=== PATIENT | male | born 1960 | race African-American/Black ===

== ENCOUNTER → 2023-09-22 06:51 | Outpatient (REF) | payer MEDICARE, SELFPAY | LOC: RAD 06:51 | PROVIDERS: ATTENDING PHYSICIAN Family Medicine | DX: Z87.891 Personal history of nicotine dependence (principal) | CPT/HCPCS: 76770 ==

== ENCOUNTER 2023-11-11 11:34 | Emergency (ER) | payer MEDICARE, SELFPAY ==
[2023-11-11 11:37] VITALS: BP 157/98
[2023-11-11 12:55] LABS: % Basophils 0.2 % (0-2); % Eosinophils 1.4 % (0-6); % Immature Granulocytes 0.4 % (0-0.5); % Lymphocytes 18.8 % (20.5-51.1); % Monocytes 9.7 % (1.7-9.3); % Neutrophils 69.5 % (42.2-75.2); Absolute Eosinophils 0.1 10^3/uL (0-0.7); Absolute Lymphocytes 1.5 10^3/uL (1.2-3.4); Absolute Monocytes 0.8 10^3/uL (0.1-0.6); Absolute Neutrophils 5.6 10^3/uL (1.4-6.5); Hematocrit 43.4 % (39.0-52.0); Hemoglobin 14.3 g/dL (13.0-18.0); Mean Corp Hgb Conc. 32.9 g/dL (33.0-37.0); Mean Corpuscular Volume 84.9 fL (80.0-94.0); Mean Platelet Volume 10.4 fL (7.4-10.4); Nucleated Red Blood Cells % 0 % (-); Platelet Count 217 10^3/uL (130-400); Red Blood Cell Count 5.11 10^6/uL (4.70-6.10); Red Cell Dist. Width 13.5 % (11.5-14.5); White Blood Cell Count 8.1 10^3/uL (4.8-10.8)
[2023-11-11 12:57] LABS: Urine Albumin Negative (Neg - Trace); Urine Bilirubin Negative (Negative); Urine Character Clear (Clear); Urine Color Yellow; Urine Glucose Negative (Negative); Urine Ketone 1+ (Negative); Urine Leukocyte Negative (Negative); Urine Nitrite Negative (Negative); Urine Occult Blood Negative (Negative); Urine Urobilinogen 1+ (Neg - 1+)
[2023-11-11 13:07] LABS: ALT (SGPT) 35 U/L (0-50); AST (SGOT) 36 U/L (17-59); Albumin 4.7 g/dl (3.5-5.0); Alkaline Phosphatase 99 U/L (38-126); Blood Urea Nitrogen 14 mg/dl (9-20); Calcium 9.9 mg/dl (8.4-10.2); Carbon Dioxide 25 mmol/L (22-30); Chloride 100 mmol/L (98-107); Glucose 106 mg/dl (70-99); Sodium 141 mmol/L (135-145); Total Bilirubin 1.1 mg/dl (0.2-1.3); Total Protein 8.1 g/dl (6.3-8.2); eGFR > 60.00
[2023-11-11 13:19] LABS: Troponin I < 0.012 ng/ml
[2023-11-11 13:25] VITALS: BP 166/78
--- NOTE | 2023-11-11 13:34 | ED.GENMED ---
History of Present Illness
General
Chief Complaint: Dizziness
Source: patient
Exam Limitations: none
Time Seen by Provider: 11/11/23 13:08
Nursing documentation reviewed up to this point in time: agreed with
History of Present Illness
History of Present Illness:
63 y/o M
h/o sleep apnea, htn, hld, frequent PVCs
followed by Dr. Young from cardiology
Presents for increased feeling of palpitations over the last 3 days as well as mild fatigue. Patient says that he has noticed when he is resting that he can feel his palpitations more frequently than usual. He is not having any chest discomfort
with that or feeling of lightheadedness or near syncope. The triage note does say that he is feeling dizzy but he denied to me. He says that he is able to complete normal activities without difficulty, he is not having any trouble climbing his
steps. When he gets to the top he feels a little bit winded but he has no chest discomfort or feeling of passing out. Patient says that he has worn a Holter monitor which I can see in the charting system and he has had very many episodes of
bigeminy and frequent PVCs. He was put on metoprolol 25 mg succinate which she has been taking daily. He recently switched from taking it at night taking it during the day because he was feeling like maybe that was causing him to have trouble
sleeping over the last week. It is within this timeframe of changing the time of day that he is taking his medication that he started feeling more palpitations. He also has lack of appetite so he has not been eating and drinking as much. He
denies fever, cough, pleuritic chest pain, leg swelling, syncope, vomiting, abdominal pain. Patient did not call his marine machinist
Past History
Past History
ED Past Medical History: HTN and Other (Hypertension, glaucoma)
ED Past Surgical History: Negative Cardiac
Social History
Tobacco: Non-smoker
Alcohol: Occasional
Drug: None
Personal:
Living: with family
Employment: Employed
Family History
Family History: Diabetes, Hypertension and Other (Stroke)
Review of Systems
Review of Systems
Allergies reviewed?: Yes
All Other Systems: Not applicable
Phy Exam
Physical Exam
Physical Exam:
GENERAL: Alert , in no apparent distress
EYE: pupils equal and reactive
NECK: Supple
ENT: o/p clr, mmm.
CARDIAC: Irregularly irregular with very frequent PVCs in the pattern of bigeminy
LUNGS: Clear breath sounds bilaterally, no acute respiratory distress, no wheezes/rales/rhonchi
ABDOMEN: Soft, without focal tenderness, no r/g, no cvat, normal bowel sounds
NEUROLOGICAL: Alert and oriented, no focal neuro deficits
SKIN: Warm and dry, skin intact.
MUSCULOSKELETAL: No edema, well perfused. neg addie's sign
PSYCH: Normal and appropriate interaction.
Course
Orders/Labs/Results
Orders:
Orders
11/11/23 11:35
Electrocardiogram (*1) Urgent
Reason for Study: Palpitations
EKG- Treatment ONCE
11/11/23 12:46
Complete Blood Count/With Diff Urgent
Comprehensive Metabolic Panel Urgent
Troponin I Urgent
Urinalysis Reflex To Culture Urgent
Date Specimen was Collected: 11/11/23
Time Specimen was Collected: 11:41
11/11/23 13:44
Metoprolol Xl [Toprol Xl] 25 mg PO NOW STA
CR Chest - 2 Views Urgent
Comment:
Reason For Exam: palptiations, fatigue
Abnormal Lab Results
11/11/23
12:46
MCHC 32.9 L g/dL
(33.0-37.0)
Absolute Monos (auto) 0.8 H 10^3/uL
(0.1-0.6)
Lymphocytes % 18.8 L %
(20.5-51.1)
Monocytes % 9.7 H %
(1.7-9.3)
Glucose 106 H mg/dl
(70-99)
Urine Ketones 1+ A
(Negative)
11/11/23 12:46
11/11/23 12:46
Vital Signs
Initial and Last Documented VS:
Initial Vital Signs
Temp Pulse Resp BP Pulse Ox
98.4 F 79 18 157/98 100
11/11/23 11:37 11/11/23 11:37 11/11/23 11:37 11/11/23 11:37 11/11/23 11:37
Last Documented Vital Signs
Temp Pulse Resp BP Pulse Ox
98.4 F 82 21 171/79 100
11/11/23 11:37 11/11/23 14:45 11/11/23 14:45 11/11/23 14:00 11/11/23 14:45
MDM/Problems Addressed
Differential Diagnosis Includes:
Palpitations, PVCs, near syncope, CHF
MDM/Problems Addressed:
63-year-old male with a history of PVCs presents with feeling more symptomatic over the last 3 days. He does admit that he has not been eating and drinking as much but he has not had an appetite which he is attributing to having these feelings. He
has not had any vomiting or diarrhea. Patient has not had any chest pain or shortness of breath. On exam he is hypertensive 150/90 and a heart rate of 80s with bigeminy pattern. He otherwise is very well-appearing. His laboratory studies show
normal electrolytes, negative troponin, 1+ ketones in his urine. There is a chest x-ray that was independently reviewed by me and clear.
I discussed this case with Dr. Young his marine machinist. In the setting of him having known frequent PVCs and being more symptomatic he recommended metoprolol for 25 mg twice daily rather than once a day to see if this helps. Also consider that
this could be a viral syndrome or dehydration causing him to feel his palpitations more frequently. Patient was encouraged to drink more fluids. He was offered a fluid bolus but he would prefer to orally hydrate. I discussed the case with the ED
attending Dr. Burkett who agreed with the plan. Patient feels comfortable going home and he will return for any concerns otherwise follow-up with a marine machinist.
*Critical Care Note
Total Time (30-74mins, 75-104mins- exclusive of procedures): Not Applicable
ED Attending Note
-
Portions of this chart may have been created with voice recognition software.� Occasional wrong word or��sound alike� substitutions may have occurred due to the inherent limitations of voice recognition software.
Discharge Plan
Departure
Patient Disposition: Home (Routine Discharge)
Date of Disposition: 11/11/23
Time of Disposition: 14:44
Patient with high blood pressure during this ER visit?: No
Condition: Fair
Covid-19: Not Applicable
Discharge Problem:
Frequent PVCs
Instructions: Ventricular premature beats, Palpitations ED
Prescriptions:
No Action
sertraline 100 MG tablet
200 mg PO QPM
levothyroxine 150 MCG tablet
150 mcg PO QPM
allopurinol 300 MG tablet
300 mg PO QPM
acetaminophen [Acetaminophen Extra Strength] 500 mg tablet
1,000 mg PO Q6H Qty: 60 0RF
Rx Instructions:
DO NOT exceed >4000 mg daily.
oxycodone 5 mg tablet
5 mg PO Q6H PRN (Reason: moderate-severe pain) Qty: 30 0RF
Rx Instructions:
1 tab for moderate pain, 2 if severe.
Dx total joint. Ongoing therapy.
celecoxib [Celebrex] 200 mg capsule
200 mg PO DAILY Qty: 30 0RF
Rx Instructions:
Take daily with food.
DO NOT take within 2 hours of Aspirin.
famotidine [Pepcid] 20 mg tablet
20 mg PO HS Qty: 30 0RF
Rx Instructions:
Take nightly while on Celebrex.
aspirin 325 mg tablet
325 mg PO DAILY Qty: 30 0RF
Rx Instructions:
Take daily x4 weeks for blood clot prevention.
docusate sodium [Colace] 100 mg capsule
100 mg PO BID Qty: 30 0RF
senna 8.6 mg capsule
17.2 mg PO BID Qty: 30 0RF
ondansetron HCl 4 mg tablet
4 mg PO Q6H PRN (Reason: nausea and vomiting) Qty: 20 0RF
Rx Instructions:
Take 1/2 hour prior to Oxycodone if experiencing recurrent nausea.
amlodipine 10 MG tablet
10 mg PO QPM Qty: 1 0RF
Rx Instructions:
HOLD if systolic blood pressure <130 while on Oxycodone.
lisinopril 20 MG tablet
20 mg PO QPM Qty: 1 0RF
Rx Instructions:
HOLD if systolic blood pressure <130 while on Oxycodone.
Referrals:
Kjoo Beverly MD [Active] - Follow up in 2-3 days
Activity Restrictions/Additional Instructions:
CALL DR BEVERLY FOR FOLLOW UP NEXT WEEK
IN THE MEANTIME TAKE YOUR METOPROLOL 25 MG TWICE A DAY
SEE IF THIS HELPS YOUR PALPITATIONS
YOU WERE MILDLY DEHYDRATED
DRINK MORE FLUIDS
RETURN FOR: FEELING LIKE YOU WILL PASS OUT, CHEST PAIN, SHORTNESS OF BREATH, FEVER, FAST HEART RATE ORA [place] CONCERNS.
OTHERWISE CALL DR. BEVERLY FOR FOLLOW UP
Interventions
Interventions:
*Risk Screen - Suicide Last Done: 11/11/23 11:37
*General Assessment Last Done: 11/11/23 11:37
*Neglect/Abuse Screening Last Done: 11/11/23 11:37
*ED COVID-19 Vaccine History Last Done: 11/11/23 12:29
*Nursing Disposition Last Done: 11/11/23 15:01
ED- Neurological Assessment Last Done: 11/11/23 12:31
ED- Cardiac Assessment Last Done: 11/11/23 12:32
Discharge Date and Time
Discharge Date/Time: 11/11/23 15:01
Print Language: SUDANESE
[2023-11-11] MEDS: TOPROL XL 25 MG PO (13:50)
[2023-11-11 14:00] VITALS: BP 171/79
== END 2023-11-11 15:01 | disposition home or self-care (01) ==
LOC: EMR 11:34
PROVIDERS: Emergency Medicine; EMERGENCY PHYSICIAN Emergency Medicine; FAMILY PHYSICIAN Family Medicine
DX: I49.3 Ventricular premature depolarization (principal); G47.30 Sleep apnea, unspecified; I10 Essential (primary) hypertension; E78.00 Pure hypercholesterolemia, unspecified; H40.9 Unspecified glaucoma; Z86.79 Personal history of other diseases of the circulatory system; Z79.899 Other long term (current) drug therapy; Z82.3 Family history of stroke; Z82.49 Family history of ischemic heart disease and other diseases of the circulatory system; Z83.3 Family history of diabetes mellitus
CPT/HCPCS: 99283; 71046; 80053; 81003; 84484; 85025; 93005